=== PATIENT | female | born 1935 | race Caucasian/White ===

== ENCOUNTER 2017-01-04 03:24 | Inpatient (IN) | payer OTHER ==
[2017-01-04] MEDS ORDERED: HYDROCODONE/APAP 5/325 TAB PO ONE (03:34)
[2017-01-04 04:11] LABS: % IMMATURE GRANULYOCYTES 0.3 % (0.0-1.1); ABSOLUTE IMMATURE GRANULOCYTES 0.04 10^3/uL (0.00-0.10); ADD DIFF? NO; ADD MORPH? NO; ADD SCAN? NO; ATYPICAL LYMPHOCYTE FLAG 0 (0-99); FRAGMENT RBC FLAG 0 (0-99); HEMATOCRIT 37.6 % (38.0-47.0); HEMOGLOBIN 12.6 g/dL (12.6-16.3); LEFT SHIFT FLG 0 (0-99); LIPEMIA HEMOLYSIS FLAG 80 (0-99); MEAN CELL HEMOGLOBIN 31.1 pg (27.9-34.1); MEAN CELL HEMOGLOBIN CONCENTR. 33.5 g/dL (32.4-36.7); MEAN CELL VOLUME 92.8 fL (81.5-99.8); MEAN PLATELET VOLUME 8.7 fL (8.7-11.7); PLATELET CLUMPS FLAG 0 (0-99); PLATELET COUNT 306 10^3/uL (150-400); RED BLOOD CELL COUNT 4.05 10^6/uL (4.18-5.33); RED CELL DISTRIBUTION WIDTH 13.5 % (11.5-15.2)
[2017-01-04 04:23] LABS: INR 1.01 (0.83-1.16); PROTIME(PATIENT) 13.2 SEC (12.0-15.0)
[2017-01-04 04:24] LABS: APTT 24.9 SEC (23.0-38.0)
[2017-01-04 04:29] LABS: ALANINE AMINOTRANSFERASE 58 IU/L (9-52); ALBUMIN 4.2 g/dL (3.5-5.0); ALKALINE PHOSPHATASE 85 IU/L (38-126); ANION GAP 9 mEq/L (8-16); ASPARTATE AMINOTRANSFERASE 58 IU/L (14-46); BILIRUBIN,TOTAL 0.5 mg/dL (0.1-1.4); CALCIUM 9.5 mg/dL (8.5-10.4); CARBON DIOXIDE 24 mEq/l (22-31); CHLORIDE 108 mEq/L (97-110); CREATININE 0.8 mg/dL (0.6-1.0); GLOMERULAR FILTRATION RATE > 60; GLUCOSE 115 mg/dL (70-100); POTASSIUM 4.1 mEq/L (3.5-5.2); SODIUM 141 mEq/L (134-144); TOTAL PROTEIN 7.1 g/dL (6.3-8.2)
--- NOTE | 2017-01-04 04:54 | EDPHY ---
H & P Stated Complaint: fall, R upper leg pain, swelling Time Seen by Provider: 01/04/17 03:32 HPI/ROS: HPI The patient presents with a fall which occurred about 2 hours prior to arrival. She is brought in by EMS. She was getting out of bed and she tripped on a magazine on the floor, falling backwards and landing on her right side. She has had right hip pain ever since. The pain is achy, severe, radiates down her leg. She denies any numbness or tingling. She was unable to get up and was yelling for help for several hours until someone came in. She did not lose consciousness, she did not hit her head. REVIEW OF SYSTEMS Constitutional: No fever, no chills. Eyes: No discharge. ENT: No sore throat. Cardiovascular: No chest pain, no palpitations. Respiratory: No cough, no shortness of breath. Gastrointestinal: No abdominal pain, no vomiting. Genitourinary: No hematuria. Musculoskeletal: No back pain. Skin: No rashes. Neurological: No headache. PMHx: Hypertension, bipolar disorder Soc Hx: Lives in [place] usually, however recently returned to her condo in [place], lives independently PHYSICAL General Appearance: Alert, no distress Eyes: Pupils equal and round no pallor or injection ENT, Mouth: Mucous membranes moist Respiratory: There are no retractions, lungs are clear to auscultation Cardiovascular: Regular rate and rhythm Gastrointestinal: Abdomen is soft and non-tender, no masses, bowel sounds normal Neurological: A&O, moves all extremities Skin: Warm and dry, no rashes Musculoskeletal: Neck is supple non tender Extremities: Right leg is held in flexion at the hip and knee with some internal rotation, she has 2+ DP pulses, she has limited range of motion of the hip secondary to pain. 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 surgery- appy, toniselectomy , ortho, CMT, depression, HEART MURMUR,head injuries - Social History Smoking Status: Light smoker Constitutional: Initial Vital Signs Temperature (C) 36.7 C 01/04/17 03:34 Heart Rate 84 01/04/17 03:34 Respiratory Rate 18 01/04/17 03:34 Blood Pressure 203/107 H 01/04/17 03:34 O2 Sat (%) 96 01/04/17 03:34 O2 Delivery Mode Room Air Allergies/Adverse Reactions: Penicillins Allergy (Intermediate, Verified 01/04/17 03:34) Rash STEROIDS Allergy (Uncoded 01/04/17 03:34) Home Medications: Medication Instructions Recorded Herbals/Supplements -Info Only 1 ea PO DAILY 08/28/14 Lisinopril [Zestril 40 mg (*)] 40 mg PO BID #3 tab 08/29/14 lamoTRIgine [LamICTAL 100 MG (*)] 100 mg PO HS #2 tab 08/29/14 Venlafaxine Xr [Effexor Xr] 150 mg PO DAILY 12/23/14 traZODone [traZODONE 100MG (*)] 300 mg PO HS 12/23/14 Labetalol HCl [Trandate 100 mg (*)] 100 mg PO BID #0 tab 12/29/14 Sennosides/Docusate Sodium 1 - 2 tab PO BID #0 tab 12/29/14 [Senokot-S] amLODIPine BESYLATE [Norvasc 10 mg 5 mg PO DAILY #0 tab 12/29/14 (*)] buPROPion XL [Wellbutrin 150mg XL] 300 mg PO DAILY #0 tab 12/29/14 Medical Decision Making - Diagnostics Imaging: Right hip plain film single view shows displaced and angulated midshaft right femur fracture, interpreted by me, radiology interpretation is pending. Procedures: Procedure: Right-sided femoral nerve block under ultrasound guidance was performed by me. Patient provided verbal consent for the procedure. Under sterile conditions, a 22 gauge spinal needle was introduced just distal to the inguinal canal, 20 mL of bupivacaine 0.5% was injected 1 cm lateral to the femoral artery surrounding the femoral nerve. The patient tolerated the procedure well, there were no immediate complications. ED Course/Re-evaluation: The patient was given morphine for her pain with good result. X-rays were performed and revealed a mid shaft femur fracture which is angulated. She has prior total hip and knee replacements on the same leg by Dr. Garcia. I consulted with the orthopedist [employer] Dr. Tucker who has reviewed the patient' s x-rays. We plan for operation later today. I have discussed this with the patient and her son-in-law at the bedside. The patient is still having severe pain, thus I have offered her a femoral nerve block and I performed this in the emergency room with good improvement in her symptoms. Her son-in-law did state that she has been manic lately and the family was planning on getting a psychiatric evaluation in the next few days. The patient will be admitted to the hospitalist service, I have discussed the case with Dr. Alford. Differential Diagnosis: This is an 81-year-old female who lives independently and walks without much difficulty who presents with a fall which occurred just prior to arrival, landing on her right hip. On exam, she is quite hypertensive, she she is complaining of right hip pain. She is neurovascularly intact in the right lower extremity. Differential diagnosis includes hip fracture, femur fracture, hip dislocation. - Data Points Laboratory Results: Laboratory Results 01/04/17 03:55 01/04/17 03:55 01/04/17 01/04/17 01/04/17 03:55 03:55 03:55 WBC RBC Hgb Hct MCV MCH MCHC RDW Plt Count MPV Neut % (Auto) Lymph % (Auto) Grainger % (Auto) Eos % (Auto) Baso % (Auto) Nucleat RBC Rel Count Absolute Neuts (auto) Absolute Lymphs (auto) Absolute Monos (auto) Absolute Eos (auto) Absolute Basos (auto) Absolute Nucleated RBC Immature Gran % Immature Gran # PT 13.2 SEC SEC (12.0-15.0) INR 1.01 (0.83-1.16) APTT 24.9 SEC SEC (23.0-38.0) Sodium 141 mEq/L mEq/L (134-144) Potassium 4.1 mEq/L mEq/L (3.5-5.2) Chloride 108 mEq/L mEq/L (97-110) Carbon Dioxide 24 mEq/l mEq/l (22-31) Anion Gap 9 mEq/L mEq/L (8-16) BUN 29 mg/dL H mg/dL (7-23) Creatinine 0.8 mg/dL mg/dL (0.6-1.0) Estimated GFR > 60 Glucose 115 mg/dL H mg/dL (70-100) Calcium 9.5 mg/dL mg/dL (8.5-10.4) Total Bilirubin 0.5 mg/dL mg/dL (0.1-1.4) AST 58 IU/L H IU/L (14-46) ALT 58 IU/L H IU/L (9-52) Alkaline Phosphatase 85 IU/L IU/L (38-126) Troponin I < 0.012 ng/mL ng/mL (0-0.034) Total Protein 7.1 g/dL g/dL (6.3-8.2) Albumin 4.2 g/dL g/dL (3.5-5.0) 01/04/17 03:55 WBC 12.08 10^3/uL H 10^3/uL (3.80-9.50) RBC 4.05 10^6/uL L 10^6/uL (4.18-5.33) Hgb 12.6 g/dL g/dL (12.6-16.3) Hct 37.6 % L % (38.0-47.0) MCV 92.8 fL fL (81.5-99.8) MCH 31.1 pg pg (27.9-34.1) MCHC 33.5 g/dL g/dL (32.4-36.7) RDW 13.5 % % (11.5-15.2) Plt Count 306 10^3/uL 10^3/uL (150-400) MPV 8.7 fL fL (8.7-11.7) Neut % (Auto) 85.2 % H % (39.3-74.2) Lymph % (Auto) 6.8 % L % (15.0-45.0) Grainger % (Auto) 6.3 % % (4.5-13.0) Eos % (Auto) 1.2 % % (0.6-7.6) Baso % (Auto) 0.2 % L % (0.3-1.7) Nucleat RBC Rel Count 0.0 % % (0.0-0.2) Absolute Neuts (auto) 10.29 10^3/uL H 10^3/uL (1.70-6.50) Absolute Lymphs (auto) 0.82 10^3/uL L 10^3/uL (1.00-3.00) Absolute Monos (auto) 0.76 10^3/uL 10^3/uL (0.30-0.80) Absolute Eos (auto) 0.15 10^3/uL 10^3/uL (0.03-0.40) Absolute Basos (auto) 0.02 10^3/uL 10^3/uL (0.02-0.10) Absolute Nucleated RBC 0.00 10^3/uL 10^3/uL (0-0.01) Immature Gran % 0.3 % % (0.0-1.1) Immature Gran # 0.04 10^3/uL 10^3/uL (0.00-0.10) PT INR APTT Sodium Potassium Chloride Carbon Dioxide Anion Gap BUN Creatinine Estimated GFR Glucose Calcium Total Bilirubin AST ALT Alkaline Phosphatase Troponin I Total Protein Albumin Medications Given: Discontinued Medications Hydrocodone Bitart/Acetaminophen ([place] 5/325) 2 tab PO EDNOW ONE Stop: 01/04/17 03:35 Last Admin: 01/04/17 06:20 Dose: Not Given Morphine Sulfate (Morphine) 4 mg IVP EDNOW ONE Stop: 01/04/17 03:51 Last Admin: 01/04/17 04:02 Dose: 4 mg Departure - Departure Disposition: [facility] Inpatient Acute Clinical Impression: Recurrent falls, Benign essential hypertension Right femoral shaft fracture Qualifiers: Encounter type: initial encounter Fracture type: closed Fracture morphology: oblique Fracture alignment: displaced Qualified Code(s): S72.331A - Displaced oblique fracture of shaft of right femur, initial encounter for closed fracture
--- NOTE | 2017-01-04 06:19 | CPEKG ---
Heart Rate: 91 RR Interval: 659 P-R Interval: 172 QRSD Interval: 88 QT Interval: 396 QTC Interval: 488 P [place]: 74 QRS [place]: 44 T Wave [place]: 71 EKG Severity - ABNORMAL ECG - EKG Impression: SINUS RHYTHM EKG Impression: PROBABLE LEFT ATRIAL ABNORMALITY EKG Impression: PROBABLE LEFT VENTRICULAR HYPERTROPHY EKG Impression: BORDERLINE PROLONGED QT INTERVAL Electronically Signed By: Delmis Shelby 04-Jan-2017 08:01:56
[2017-01-04] MEDS ORDERED: ONDANSETRON 4 MG/2 ML VIAL IVP PRN (06:40)
[2017-01-04] MEDS ORDERED: ONDANSETRON DISINTEGRATING 4 MG TAB PO PRN (06:40)
[2017-01-04] MEDS ORDERED: ACETAMINOPHEN 325 MG TAB PO PRN (06:40)
[2017-01-04] MEDS ORDERED: NS 1,000 ML IV SCH (06:45)
--- NOTE | 2017-01-04 07:35 | PDGENHP ---
History and Physical - Chief Complaint fall - History of Present Illness Patient is an 81-year-old female with history of hypertension, bipolar disorder, Motiikn-Nrrlt-Bhxin disease, hyperlipidemia chronic arthritis who presents to the ED after a mechanical fall at home. Patient reports she had woken from sleeping to get a drink of water, she was 1 walking cross her floor she slipped on a magazine and landed on her right side/hip. She immediately felt intense pain in her right hip and reports hearing a snap. She was unable to rise from the floor, but was able to call out and bang on her floor, so that eventually her neighbors called EMS. Patient denies any obvious head trauma, LOC or preceding symptoms of palpitations, chest pain or shortness of breath. Patient does report that she had shefali food for lunch on the day of presentation and reports about 3-4 hours after lunch began having loose, foul-smelling stools and nausea/vomiting. She reports vomiting 1-2 times and having about 2-3 BMs, both nonbloody. On arrival to the ED, patient was significantly hypertensive, but afebrile. Labs revealed mild leukocytosis, normal BMP, negative troponin. X-ray revealed displaced R femoral shaft fracture. She was given pain control, Ortho was consulted and she was admitted to the hospitalist service for further management. Of note, patient was in the ED with her son-in-law, who states for the past several weeks patient has been acting in a manic manner. She left her daughter' s home in [place] where she was living and moved into her unfurnished [facility] apartment alone in [place]. He is unable to say if she has been drinking alcohol or taking all her prescribed medications. The psychiatrist she had been following with for many years several months ago and patient's psych care as diminished since then. Currently, patient denies any SI/HI. History Information - Allergies/Home Medication List Allergies/Adverse Reactions: Penicillins Allergy (Intermediate, Verified 01/04/17 03:34) Rash STEROIDS Allergy (Uncoded 01/04/17 07:57) Other-Enter Comments Home Medications: Venlafaxine Xr [Effexor Xr] 150 mg PO DAILY 12/23/14 [Last Taken 12/23/14 08:00] traZODone [traZODONE 100MG (*)] 300 mg PO HS 12/23/14 [Last Taken 12/22/14 20:00 ] Gabapentin [Neurontin 100 MG (*)] 100 - 300 mg PO TID PRN 01/04/17 [Last Taken 01/03/17] I have personally reviewed and updated: family history, medical history, social history, surgical history - Past Medical History Additional medical history: labile hypertension. HLD. Cmckyqi-qgleu-otcyy disease. arthritis. Bipolar disorder - Surgical History Additional surgical history: b/l hip replacement. knee replacement. appendectomy. knee reconstruction. tubal ligation - Family History Positive for: non-pertinent - Social History Smoking Status: Light smoker Alcohol Use: None Drug Use: None Additional social history: Patient usually lives with her daughter in [facility] , but recently left and now lives alone. Review of Systems ROS: 10pt was reviewed & negative except for what was stated in HPI & below Physical Exam Temp Pulse Resp BP Pulse Ox 36.7 C 81 16 181/90 H 99 01/04/17 03:34 01/04/17 06:00 01/04/17 06:00 01/04/17 06:00 01/04/17 06:00 O2 (L/minute) 2 Constitutional: appears nourished, uncomfortable Eyes: PERRL, anicteric sclera, EOMI Ears, Nose, Mouth, Throat: hearing normal, ears appear normal, no oral mucosal ulcers, dry mucous membranes Cardiovascular: regular rate and rhythym, no murmur, rub, or gallop, pulses symmetric bilaterally, No JVD, No edema Peripheral Pulses: 2+: dorsalis-pedis (R), dorsalis-pedis (L) Respiratory: no respiratory distress, no rales or rhonchi, clear to auscultation Gastrointestinal: normoactive bowel sounds, soft, non-tender abdomen, no palpable masses, No guarding, No rebound, No distension Genitourinary: no bladder fullness, no bladder tenderness Skin: other (no obvious ecchymosis or abrasions) Musculoskeletal: pain with ROM ( of RLE) Neurologic: AAOx3, sensation intact bilaterally, CN II-XII Intact, other, No weakness, No numbness Psychiatric: other (pressured speech, perseverating ) Lab Data & Imaging Review 01/04/17 03:55 01/04/17 03:55 WBC 12.08 10^3/uL (3.80-9.50) H 01/04/17 03:55 RBC 4.05 10^6/uL (4.18-5.33) L 01/04/17 03:55 Hgb 12.6 g/dL (12.6-16.3) 01/04/17 03:55 Hct 37.6 % (38.0-47.0) L 01/04/17 03:55 MCV 92.8 fL (81.5-99.8) 01/04/17 03:55 MCH 31.1 pg (27.9-34.1) 01/04/17 03:55 MCHC 33.5 g/dL (32.4-36.7) 01/04/17 03:55 RDW 13.5 % (11.5-15.2) 01/04/17 03:55 Plt Count 306 10^3/uL (150-400) 01/04/17 03:55 MPV 8.7 fL (8.7-11.7) 01/04/17 03:55 Neut % (Auto) 85.2 % (39.3-74.2) H 01/04/17 03:55 Lymph % (Auto) 6.8 % (15.0-45.0) L 01/04/17 03:55 [place] % (Auto) 6.3 % (4.5-13.0) 01/04/17 03:55 Eos % (Auto) 1.2 % (0.6-7.6) 01/04/17 03:55 Baso % (Auto) 0.2 % (0.3-1.7) L 01/04/17 03:55 Nucleat RBC Rel Count 0.0 % (0.0-0.2) 01/04/17 03:55 Absolute Neuts (auto) 10.29 10^3/uL (1.70-6.50) H 01/04/17 03:55 Absolute Lymphs (auto) 0.82 10^3/uL (1.00-3.00) L 01/04/17 03:55 Absolute Monos (auto) 0.76 10^3/uL (0.30-0.80) 01/04/17 03:55 Absolute Eos (auto) 0.15 10^3/uL (0.03-0.40) 01/04/17 03:55 Absolute Basos (auto) 0.02 10^3/uL (0.02-0.10) 01/04/17 03:55 Absolute Nucleated RBC 0.00 10^3/uL (0-0.01) 01/04/17 03:55 Immature Gran % 0.3 % (0.0-1.1) 01/04/17 03:55 Immature Gran # 0.04 10^3/uL (0.00-0.10) 01/04/17 03:55 PT 13.2 SEC (12.0-15.0) 01/04/17 03:55 INR 1.01 (0.83-1.16) 01/04/17 03:55 APTT 24.9 SEC (23.0-38.0) 01/04/17 03:55 Sodium 141 mEq/L (134-144) 01/04/17 03:55 Potassium 4.1 mEq/L (3.5-5.2) 01/04/17 03:55 Chloride 108 mEq/L (97-110) 01/04/17 03:55 Carbon Dioxide 24 mEq/l (22-31) 01/04/17 03:55 Anion Gap 9 mEq/L (8-16) 01/04/17 03:55 BUN 29 mg/dL (7-23) H 01/04/17 03:55 Creatinine 0.8 mg/dL (0.6-1.0) 01/04/17 03:55 Estimated GFR > 60 01/04/17 03:55 Glucose 115 mg/dL (70-100) H 01/04/17 03:55 Calcium 9.5 mg/dL (8.5-10.4) 01/04/17 03:55 Total Bilirubin 0.5 mg/dL (0.1-1.4) 01/04/17 03:55 AST 58 IU/L (14-46) H 01/04/17 03:55 ALT 58 IU/L (9-52) H 01/04/17 03:55 Alkaline Phosphatase 85 IU/L (38-126) 01/04/17 03:55 Troponin I < 0.012 ng/mL (0-0.034) 01/04/17 03:55 Total Protein 7.1 g/dL (6.3-8.2) 01/04/17 03:55 Albumin 4.2 g/dL (3.5-5.0) 01/04/17 03:55 Visualized and Interpreted imaging results: Yes Interpretation: x-ray: displaced R femoral shaft fracture Visualized and Interpreted EKG results: Yes EKG Interpretation: Positive for: LVH, normal sinsus rhythm Assessment & Plan Assessment: Patient is 81/F with bipolar disorder, HTN, HLD, charcot zaire tooth disease who presents to the ED after a mechanical fall that resulted in R femoral shaft displaced fracture. Plan: # fall Patient's description of fall sounds mechanical in nature (slipped on magazine) . She denies head trauma or cardiac symptoms, EKG showed normal sinus rhythm and troponin is negative. # acute R femoral shaft fracture Due to above listed fall. Ortho consulted, official recs pending, but patient will require surgical fixation. Currently neurovascularly intact. Will f/u ortho recs. # leukocytosis Patient afebrile, with mild leukocytosis on presentation, which is likely reactive. However, patient does report recent n/v/d after a meal on the day prior to presentation. No repeat episodes since arrival. Will check UA, CXR and hold off on antibiotics until obvious source has been identified. # chronic HTN BP markedly elevated on presentation, but likely related to acute pain/ fracture. Will confirm home meds, control pain and reassess. # Bipolar disorder Patient appears manic on presentation, with pressured speech, flight of ideas. However, is re-directable, and denies any si/hi. Will consider psych consult and cont home medications. # dispo: admit to inpatient service for > 2 MN stay give acute fracture requiring surgical repair # gen: NPO DVT ppx: lovenox, per orth Full code
[2017-01-04] MEDS ORDERED: LIDOCAINE 2% JELLY 5 ML TUBE ONE (07:46)
[2017-01-04] MEDS ORDERED: POLYMYXIN B SULFATE 500,000 UNIT/10 ML SYR IRR ONE (09:21)
[2017-01-04] MEDS ORDERED: BUPIVACAINE 0.5% 30 ML SDV ONE (09:21)
[2017-01-04] MEDS ORDERED: BACITRACIN 50,000 UNITS/10 ML SYR IRR ONE (09:23)
[2017-01-04] MEDS ORDERED: GABAPENTIN 100 MG CAP PO PRN (09:30)
[2017-01-04] MEDS ORDERED: lamoTRIgine 25 MG TAB PO ONE (09:32)
--- NOTE | 2017-01-04 10:42 | ECHO ---
[id number] + + [address] : : [place] [address] : : [phone] + Adult Echocardiographic Report + ------+ :Name: GREG ALLEN HStudy Date: 01/04/2017 09:36 AM : : Hospital Admission Number: [id number] Locatio n: 243: :: 1935 Gender: Female Height: 63 in : :Age: 81 yrs Race: WH Weight: 120 lb : :Reason For Study: Hypertension/fall/R/O cardiac abnormality : : BSA: 1.6 meters 2 : + ------+ MMode/2D Measurements \T\ Calculations LA dimension: 3.3 cm Normal Measurement Values: + + :LVIDd (3.5-5.7cm) IVSd (0.6-1.1cm) LVPWd (0.6-1.1cm) Aortic Root (2.0-3.7cm)Left Atrium (1.5-4.0cm): :LV Vol(d) (76-115ml) LV Vol(s) (29-48ml) Ejec Fraction (50-65%)PV Jabier (0.6- 1.2m/s) TV Jabier (0.4-1.0m/s) : :MV E Jabeir (0.8-1.0m/s)MV A Jabier (0.3-1.0m/s)LVOT Jabier (0.7-1.2m/s) Asc Ao Jabier ( 0.9-1.8m/s) : + + Doppler Measurements \T\ Calculations MV E max jabier: 70.6 cm/sec Ao mean P.5 mmHg MV A max jabier: 138.7 cm/sec Ao V2 mean: 112.5 cm/sec MV E/A: 0.51 Ao V2 VTI: 33.3 cm Left Ventricle The left ventricle is normal in size. There is moderate concentric left ventricular hypertrophy. There is Doppler evidence for diastolic dysfunction. The left ventricle is hyperdynamic. Ejection Fraction = 70-75%. Elevated LV filling pressures. No regional wall motion abnormalities noted. Right Ventricle The right ventricle is normal in size and function. Atria The left atrial size is normal. Right atrial size is normal. Mitral Valve Calcified posterior mitral annulus. There is no evidence of mitral valve prolapse. There is mild mitral stenosis. There is trace mitral regurgitation. Tricuspid Valve Normal tricuspid valve. There is trace tricuspid regurgitation. Aortic Valve AV mild calcification. Not well visualized. There is no aortic stenosis. There is no aortic insufficiency. Pulmonic Valve The pulmonic valve is not well visualized. There is no pulmonic valvular regurgitation. Great Vessels The aortic root is normal size. Pericardium/Pleural There is no pericardial effusion. Conclusion A complete two-dimensional transthoracic echocardiogram was performed (2D, M-mode, Doppler and color flow Doppler). There is moderate concentric left ventricular hypertrophy. The left ventricle is hyperdynamic. There is Doppler evidence for diastolic dysfunction. Ejection Fraction = 70-75%. There is trace mitral regurgitation. There is trace tricuspid regurgitation. Calcified posterior mitral annulus There is mild mitral stenosis. AV mild calcification. Aortic valve is not well visualized. There is no Compared with 12/28/2011, LVH now present; mild MS now present Final Reading Physician: Dr Awilda Somers electronically signed on 01/04/2017 10:40 AM Ordering Physician: Negin Alford Performed By: Maribel Kaplan, KAYLA
[2017-01-04] MEDS: LABETALOL HCL 100 MG TAB PO SCH ×2 (11:23→20:29)
[2017-01-04] MEDS ORDERED: MIDAZOLAM 2 MG/2 ML VIAL ONE (13:03)
[2017-01-04] MEDS ORDERED: fentaNYL 100 MCG/2 ML INJ ONE ×2 (13:24→15:11)
[2017-01-04] MEDS ORDERED: PROPOFOL 200 MG/20 ML VIAL ONE ×3 (13:24→15:43)
[2017-01-04] MEDS ORDERED: CLINDAMYCIN 600 MG/DEXTROSE/50 ML BAG IV ONE (13:28)
[2017-01-04] MEDS ORDERED: CLINDAMYCIN 600 MG in D5W 50 ML IV ONE (13:30)
[2017-01-04] MEDS ORDERED: PHENYLEPHRINE HCL 100 MCG/ML SYR ONE (14:21)
[2017-01-04] MEDS ORDERED: PHENYLEPHRINE 10 MG/ML SDV ONE (14:34)
[2017-01-04] MEDS ORDERED: ALBUMIN 5% 250 ML BOTTLE IV ONE (14:39)
[2017-01-04] MEDS ORDERED: TEMAZEPAM 15 MG CAP PO PRN (16:30)
[2017-01-04] MEDS ORDERED: MAGNESIUM HYDROXIDE 30 ML UDCUP PO PRN (16:30)
[2017-01-04] MEDS ORDERED: POLYETHYLENE GLYCOL 3350 17 GM PKT PO PRN (16:30)
[2017-01-04] MEDS ORDERED: D5W 1/2 NS W/ 20 KCl/L 1,000 ML IV SCH (16:30)
[2017-01-04] MEDS ORDERED: BISACODYL 10 MG SUPP PR PRN (16:30)
--- NOTE | 2017-01-04 16:30 | POSTOPPROG ---
Post Op Note Date of Operation: 01/04/17 Surgeon: Kalani Tucker Anesthesiologist: emmett Anesthesia: Epidural Pre-op Diagnosis: r periprosthetic femur fx Procedure: r femur orif with fluoro Inf/Abcess present in the surg proc area at time of surgery?: No Depth: Deep Incisional (Fascial) EBL: 500-1000
[2017-01-04] MEDS ORDERED: ENALAPRILAT DIHYDRATE 1.25 MG/ML VIAL ONE (17:16)
[2017-01-04] MEDS: ACETAMINOPHEN 325 MG TAB PO SCH ×2 (18:23→23:32)
[2017-01-04] MEDS: traMADol 50 MG TAB PO SCH ×2 (18:24→23:29)
--- NOTE | 2017-01-04 18:35 | HOSPPROG ---
Hospitalist Progress Note Assessment/Plan: pt seen and examined Hip fracture to be repaired today. pt is manic and probably hasn't taken her meds in a while Will get psych consult. restart lamictal at lower dose and titrate up. hold antidepressants for now Objective: Vital Signs Temp Pulse Resp BP Pulse Ox 36.8 C 82 16 150/73 H 93 01/04/17 18:31 01/04/17 18:31 01/04/17 18:31 01/04/17 18:31 01/04/17 18:31 01/03/17 01/04/17 01/05/17 05:59 05:59 05:59 Intake Total 1250 Output Total 1600 Balance -350 PT 13.2 SEC (12.0-15.0) 01/04/17 03:55 INR 1.01 (0.83-1.16) 01/04/17 03:55 ICD10 Worksheet Patient Problems: Problems Problem Status Onset Benign essential hypertension Acute Recurrent falls Acute Right femoral shaft fracture Acute Hyponatremia Active Vasovagal syncope Active
[2017-01-04] MEDS ORDERED: diphenhydrAMINE 25 MG CAP PO PRN (19:11)
[2017-01-04] MEDS: lamoTRIgine 100 MG TAB PO SCH (20:24)
[2017-01-04] MEDS: traZODone 100 MG TAB PO SCH (20:24)
[2017-01-04] MEDS: SENNOSIDES/DOCUSATE SODIUM TAB PO SCH (20:24)
[2017-01-04] MEDS ORDERED: lamoTRIgine 100 MG TAB PO SCH (21:00)
--- NOTE | 2017-01-04 21:34 | GCON ---
DATE OF CONSULTATION: 01/04/2017 CURRENT COMPLAINT: Right femur pain. HISTORY OF PRESENT ILLNESS: This is an 81-year-old female who had previously undergone a right tota l hip arthroplasty and a right total knee arthroplasty, who fell this evening. Had pain and deformi ty. Was seen in the emergency room, diagnosed with a long oblique displaced fracture of the midshaf t of the femur. I was asked to see the patient for further evaluation. PHYSICAL EXAMINATION: The patient has an obvious deformity of the femur with a great deal of swelli ng noted. With any type of movement, she has crepitus and pain associated with movement of the leg. She remains grossly neurologically intact to the dorsal, lateral, and plantar portions of the foot with EHL and FHL remaining intact. RADIOLOGY: X-ray exam reveals a long spiral fracture of midshaft of the femur, extending well into and involving the right total hip arthroplasty. ASSESSMENT AND PLAN: The patient is status post right periprosthetic femur fracture. She will be b rought to the operating room as soon as time is available for an open reduction and internal fixatio n. /[id number]/MODL
[2017-01-04] MEDS: CLINDAMYCIN 600 MG/DEXTROSE 50 ML IV SCH (21:39)
--- NOTE | 2017-01-04 22:04 | GOP ---
DATE OF OPERATION: 01/04/2017 SURGEON: Kalani Tucker MD ANESTHESIA: Epidural nerve block plus sedation. PREOPERATIVE DIAGNOSIS: Right periprosthetic femur fracture. POSTOPERATIVE DIAGNOSIS: Right periprosthetic femur fracture. PROCEDURE PERFORMED: Open reduction, internal fixation of right periprosthetic femur fracture with fluoroscopy. FINDINGS: INDICATIONS: This is an 81-year-old female who has a remote history of bilateral hip replacements a nd a right knee replacement. She slipped and fell last night, was seen in the emergency room, diagn osed with a displaced femur fracture involving the total hip arthroplasty. She was brought to the o perating room as soon as time was available. DESCRIPTION OF PROCEDURE: Patient brought to the operating room after the right side had been ident ified as the correct side by the patient, nurse, and physician. Once in the operating room, she was given an epidural nerve block. She was then placed in the lateral decubitus position with the righ t hip and flank exposed. The right hip and flank were then sterilely prepped and draped in usual fa shion using GSI solution. Once prepped and draped, incision was started using the distal 2 inches o f her hip arthroplasty scar and extending all the way to the lateral femoral condyle in a curvilinea r fashion with sharp dissection carried down through skin and subcutaneous layers with bleeding cont rolled using electrocautery. Incision was made through the TFL in line with its fibers, exposing th e vastus lateralis below. The vastus lateralis was then peeled off the bone in order to expose the fracture site. Much of the periosteal dissection had been done by the fracture itself. The tip of the hip arthroplasty was easily visible within the wound. Hematoma and soft tissue were debrided of f the fracture ends. Once completed, the wound was thoroughly irrigated with an antibiotic solution . The fracture was able to be reduced, was held in place with 2 reduction bone clamps. Once in pos ition, fluoroscopy was used to ensure adequate reduction of the femur itself. Once this was shown, multiple plates were trialed and noted a 16-hole 4.5 mm plate seemed to fit best with regard to exte nding above and below the long oblique fracture. Therefore 2 interfragmentary screws were placed in the midportion of the fracture well below the hip arthroplasty. Once in position, clamps were jyoti morenita. A 16 hole plate was then placed on the area. It was noted to have a significant concavity. T herefore, the plate had to be bent in order to fit the concavity. Once this was bent and put into p lace, it was noted to fit securely onto the bone. A single bicortical screw was placed in the dista l portion of the plate and a single cable was passed around the proximal portion around the plate ne ar the area of the hip arthroplasty. Fluoroscopy was again used to ensure adequate reduction of the fracture and good positioning of the plate. Once this was ensured, 3 locking screws were placed in the distal portion of the plate and 3 more cables were placed in the proximal portion of the plate in order to gain both proximal and distal fixation across the fracture site with the area bridged by a large metal plate and the 2 interfragmentary screws in the middle. Fluoroscopy was used to ensur e proper positioning of the screws and the cables. Once ensured, the wound was thoroughly irrigated with an antibiotic solution. It was closed in layers to include 0 Vicryl suture for the fascia of the vastus lateralis, and another set of 0 Vicryl sutures for the tensor fascia natanael, 0 Vicryl and 2 -0 Vicryl suture for the subcutaneous layers, and vipul for the skin. 30 cc of Marcaine was infus ed around the skin and deeper soft tissue layers. The wound was then washed and dried. It was dres sed with Xeroform, 4 x 4, and Tegaderm. She was completely undraped in the operating room, placed i n supine position. She was then transferred onto a bed and sent to the recovery room in good condit ion. CURRENT COMPLAINTS: Right femur pain. /[id number]/MODL
[2017-01-04] MEDS ORDERED: hydrALAZINE 20 MG/ML VIAL IVP PRN (23:43)
[2017-01-04 23:54] LABS: COLOR YELLOW; LEUKOCYTE ESTERASE,URINE NEGATIVE (NEGATIVE); NITRITE,URINE NEGATIVE (NEGATIVE)
[2017-01-05 00:11] LABS: MUCUS TRACE /lpf (NONE-1+); RBC,URINE 25-50 /hpf (0-3)
[2017-01-05 06:20] LABS: HEMOGLOBIN 10.8 g/dL (12.6-16.3)
[2017-01-05] MEDS: traMADol 50 MG TAB PO SCH ×3 (06:31→18:20)
[2017-01-05] MEDS: CLINDAMYCIN 600 MG/DEXTROSE 50 ML IV SCH ×3 (06:31→20:56)
[2017-01-05] MEDS: ACETAMINOPHEN 325 MG TAB PO SCH ×4 (06:34→20:47)
[2017-01-05] MEDS: RIVAROXABAN 10 MG TAB PO SCH (09:19)
[2017-01-05] MEDS: SENNOSIDES/DOCUSATE SODIUM TAB PO SCH ×2 (09:20→20:46)
[2017-01-05] MEDS: HYDROCODONE/APAP 5/325 TAB PO PRN ×4 (09:21→18:21)
[2017-01-05] MEDS: LABETALOL HCL 100 MG TAB PO SCH ×2 (09:21→20:51)
[2017-01-05] MEDS ORDERED: FLU VACC TS 2016-17(65YR+)/PF 0.5 ML SYR (FLUZONE HIGH DOSE) IM ONE (10:30)
--- NOTE | 2017-01-05 11:24 | SOAPPROG ---
SOAP Progress Note Assessment/Plan: Assessment: Plan: Subjective: comfortable and talkative dressings C&D with foot NVI cont PT Objective: Vital Signs Temp Pulse Resp BP Pulse Ox 36.5 C 81 19 163/78 H 98 01/05/17 07:56 01/05/17 09:21 01/05/17 07:56 01/05/17 09:21 01/05/17 07:56 Laboratory Results 01/05/17 05:03 01/04/17 01/05/17 01/06/17 05:59 05:59 05:59 Intake Total 2250 500 Output Total 2350 Balance -100 500 PT 13.2 SEC (12.0-15.0) 01/04/17 03:55 INR 1.01 (0.83-1.16) 01/04/17 03:55 ICD10 Worksheet Patient Problems: Problems Problem Status Onset Benign essential hypertension Acute Recurrent falls Acute Right femoral shaft fracture Acute Hyponatremia Active Vasovagal syncope Active
--- NOTE | 2017-01-05 12:30 | HOSPPROG ---
Hospitalist Progress Note Assessment/Plan: * hip fracture * status post repair * bipolar with manic episode * better today with Lamictal * psych input appreciated * hypertension * continue medications * DVT prophylaxis * placed on Xarelto by Orthopedic surgery Subjective: doing well postoperatively. Objective: Vital Signs Temp Pulse Resp BP Pulse Ox 36.6 C 68 18 122/63 H 95 01/05/17 12:22 01/05/17 12:22 01/05/17 12:22 01/05/17 12:22 01/05/17 12:22 Laboratory Results 01/05/17 05:03 01/04/17 01/05/17 01/06/17 05:59 05:59 05:59 Intake Total 2250 500 Output Total 2350 Balance -100 500 PT 13.2 SEC (12.0-15.0) 01/04/17 03:55 INR 1.01 (0.83-1.16) 01/04/17 03:55 - Physical Exam Constitutional: no apparent distress, appears nourished, not in pain Eyes: anicteric sclera, EOMI Ears, Nose, Mouth, Throat: moist mucous membranes, hearing normal Cardiovascular: regular rate and rhythym Respiratory: no respiratory distress Skin: warm Neurologic: AAOx3 Psychiatric: other ( Less pressured speech but still quite talkative) ICD10 Worksheet Patient Problems: Problems Problem Status Onset Benign essential hypertension Acute Recurrent falls Acute Right femoral shaft fracture Acute Hyponatremia Active Vasovagal syncope Active
[2017-01-05] MEDS: traZODone 100 MG TAB PO SCH (20:45)
[2017-01-05] MEDS: lamoTRIgine 100 MG TAB PO SCH (20:48)
[2017-01-05] MEDS: oxyCODONE IR 5 MG TAB PO PRN (21:35)
--- NOTE | 2017-01-06 00:05 | SOAPPROG ---
SOAP Progress Note Assessment/Plan: Psychiatry brief consult (patient not interviewed as she was in surgery 01/04/17): 81yo F with long hx of BMD per hx has been more manic and inconsistently compliant with meds and treatment over past few months since psychiatrist . Admitted to hosp s/p spiral fx of femur after slipped on magazine and fell when getting up at night Primary team requested consult for BMD medication recommendations. Has several psychiatric home meds (Effexor, Trazodone, Wellbutrin, Lamictal, Gabapentin) Attempted to see patient on 01/04/17 at 13:30 but she was in surgery. Unable to see today. Discussed case with Dr. Ma, and briefly reviewed history, meds. Also t/w pharmacy about pt hx of med refills- pt last filled Trazodone and Gabapentin 12/06/16, Lamictal in 10/2016, and Wellbutrin and Effexor in early Nov 2016. 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 Could incr at faster rate in inpatient setting and monitor more closely, but ok to stay at 25mg qd for now. Restart outpt Trazodone 300mg for now. Tolerated without incident last night. High dose, also technically an antidepressant so could contribute to tash, but seems may have been more compliant with this since most recently filled. Could try lower dose 200mg or even 100mg as may not need more for sleep. Watch for any s/e, incl orthostasis. Hold antidepressant meds Wellbutrin, Effexor for now. Not indicated if BMD manic. In this elderly woman, would also d/c her prn Benadryl and Temazepam to decr risk of adverse effects. Hasn't used any post-op. Will try to get collateral from family, and if pt able to sign for [facility], could get records or consent to t/w outpt psychiatry at [facility] for collateral. Per RN today, pt manic mainly noted with excessive talking but otherwise has been in behavioral control and redirectible. 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 Did not sustain head injury s/p fall prior to this admission. Will try to see this patient as soon as possible for formal consult. Please do not hesitate to call in the meantime if any further questions or concerns, or clinical changes. Objective: Vital Signs Temp Pulse Resp BP Pulse Ox 37.7 C 85 16 125/58 H 93 01/05/17 20:22 01/05/17 20:22 01/05/17 20:22 01/05/17 20:22 01/05/17 20:22 Laboratory Results 01/05/17 05:03 01/04/17 01/05/17 01/06/17 05:59 05:59 05:59 Intake Total 2250 650 Output Total 2350 Balance -100 650 PT 13.2 SEC (12.0-15.0) 01/04/17 03:55 INR 1.01 (0.83-1.16) 01/04/17 03:55 ICD10 Worksheet Patient Problems: Problems Problem Status Onset Benign essential hypertension Acute Recurrent falls Acute Right femoral shaft fracture Acute Hyponatremia Active Vasovagal syncope Active
[2017-01-06] MEDS: traMADol 50 MG TAB PO SCH ×5 (03:27→23:53)
[2017-01-06] MEDS: CLINDAMYCIN 600 MG/DEXTROSE 50 ML IV SCH (05:10)
[2017-01-06] MEDS: ACETAMINOPHEN 325 MG TAB PO SCH ×4 (05:15→23:53)
[2017-01-06 05:27] LABS: HEMATOCRIT 30.1 % (38.0-47.0); HEMOGLOBIN 10.1 g/dL (12.6-16.3)
[2017-01-06] MEDS: oxyCODONE IR 5 MG TAB PO PRN ×2 (08:39→15:17)
[2017-01-06] MEDS: LABETALOL HCL 100 MG TAB PO SCH ×2 (08:40→20:16)
[2017-01-06] MEDS: RIVAROXABAN 10 MG TAB PO SCH (08:40)
[2017-01-06] MEDS: SENNOSIDES/DOCUSATE SODIUM TAB PO SCH ×2 (08:40→20:17)
[2017-01-06] MEDS: LACTULOSE 20 GM/30 ML UDCUP PO PRN (08:42)
[2017-01-06] MEDS ORDERED: MAGNESIUM CITRATE 300 ML BOTTLE PO ONE (15:09)
--- NOTE | 2017-01-06 15:19 | HOSPPROG ---
Hospitalist Progress Note Assessment/Plan: * hip fracture * status post repair * bipolar with manic episode * better today with Lamictal * psych input appreciated * hypertension * continue medications * DVT prophylaxis * placed on Xarelto by Orthopedic surgery * disposition * could probably going to rehab tomorrow but would like psychiatric state to be stable. Family looking at rehab at [place] but patient wants this day in [place]. She apparently has a boyfriend and there is some question if she has been giving him all of her money Subjective: feels constipated Objective: Vital Signs Temp Pulse Resp BP Pulse Ox 37.3 C 77 18 123/74 H 96 01/06/17 12:16 01/06/17 12:16 01/06/17 12:16 01/06/17 12:16 01/06/17 12:16 Laboratory Results 01/06/17 04:45 01/05/17 01/06/17 01/07/17 05:59 05:59 05:59 Intake Total 2250 950 300 Output Total 2350 850 Balance -100 950 -550 PT 13.2 SEC (12.0-15.0) 01/04/17 03:55 INR 1.01 (0.83-1.16) 01/04/17 03:55 - Physical Exam Constitutional: no apparent distress, appears nourished, not in pain Eyes: anicteric sclera, EOMI Ears, Nose, Mouth, Throat: moist mucous membranes, hearing normal Cardiovascular: regular rate and rhythym, no murmur, rub, or gallop Respiratory: no respiratory distress, no rales or rhonchi, clear to auscultation Gastrointestinal: normoactive bowel sounds, soft, non-tender abdomen, no palpable masses Skin: warm Neurologic: AAOx3 Psychiatric: other ( the about the same as yesterday. Less pressured speech but pretty talkative) ICD10 Worksheet Patient Problems: Problems Problem Status Onset Benign essential hypertension Acute Recurrent falls Acute Right femoral shaft fracture Acute Hyponatremia Active Vasovagal syncope Active
[2017-01-06] MEDS: traZODone 100 MG TAB PO SCH (20:16)
[2017-01-06] MEDS: lamoTRIgine 100 MG TAB PO SCH (20:17)
[2017-01-07] MEDS: traMADol 50 MG TAB PO SCH ×4 (05:09→22:52)
[2017-01-07] MEDS: LACTULOSE 20 GM/30 ML UDCUP PO PRN (05:09)
[2017-01-07] MEDS: ACETAMINOPHEN 325 MG TAB PO SCH ×4 (05:09→22:51)
[2017-01-07 05:53] LABS: % IMMATURE GRANULYOCYTES 0.6 % (0.0-1.1); ABSOLUTE IMMATURE GRANULOCYTES 0.04 10^3/uL (0.00-0.10); ADD DIFF? NO; ADD MORPH? NO; ADD SCAN? NO; ATYPICAL LYMPHOCYTE FLAG 0 (0-99); FRAGMENT RBC FLAG 0 (0-99); HEMATOCRIT 29.1 % (38.0-47.0); HEMOGLOBIN 9.7 g/dL (12.6-16.3); LEFT SHIFT FLG 0 (0-99); LIPEMIA HEMOLYSIS FLAG 80 (0-99); MEAN CELL HEMOGLOBIN 31.2 pg (27.9-34.1); MEAN CELL HEMOGLOBIN CONCENTR. 33.3 g/dL (32.4-36.7); MEAN CELL VOLUME 93.6 fL (81.5-99.8); PLATELET CLUMPS FLAG 0 (0-99); PLATELET COUNT 210 10^3/uL (150-400); RED BLOOD CELL COUNT 3.11 10^6/uL (4.18-5.33); RED CELL DISTRIBUTION WIDTH 13.9 % (11.5-15.2)
[2017-01-07] MEDS: oxyCODONE IR 5 MG TAB PO PRN (09:24)
[2017-01-07] MEDS: SENNOSIDES/DOCUSATE SODIUM TAB PO SCH ×2 (09:25→21:36)
[2017-01-07] MEDS: RIVAROXABAN 10 MG TAB PO SCH (09:25)
[2017-01-07] MEDS: LABETALOL HCL 100 MG TAB PO SCH ×2 (09:29→21:36)
[2017-01-07] MEDS ORDERED: lamoTRIgine 100 MG TAB PO SCH (21:00)
--- NOTE | 2017-01-07 21:04 | HOSPPROG ---
Hospitalist Progress Note Assessment/Plan: * hip fracture * status post repair * bipolar with manic episode * better today with Lamictal * psych input appreciated * will increase to 50 mg daily. was on 200 then stopped. * hypertension * continue medications * DVT prophylaxis * placed on Xarelto by Orthopedic surgery * disposition * could probably going to rehab tomorrow but would like psychiatric state to be stable. trying to get into rehab in [facility] Subjective: no new complaints Objective: Vital Signs Temp Pulse Resp BP Pulse Ox 37.8 C 85 15 163/72 H 96 01/07/17 16:00 01/07/17 16:00 01/07/17 16:00 01/07/17 16:00 01/07/17 16:00 Laboratory Results 01/07/17 05:09 01/06/17 01/07/17 01/08/17 05:59 05:59 05:59 Intake Total 950 800 650 Output Total 1850 750 Balance 950 -1050 -100 PT 13.2 SEC (12.0-15.0) 01/04/17 03:55 INR 1.01 (0.83-1.16) 01/04/17 03:55 - Physical Exam Constitutional: no apparent distress, appears nourished, not in pain Eyes: anicteric sclera, EOMI Ears, Nose, Mouth, Throat: moist mucous membranes, hearing normal Cardiovascular: regular rate and rhythym, no murmur, rub, or gallop Respiratory: no respiratory distress Skin: normal color Neurologic: AAOx3 Psychiatric: other (talkative but not as manic as admit) ICD10 Worksheet Patient Problems: Problems Problem Status Onset Benign essential hypertension Acute Recurrent falls Acute Right femoral shaft fracture Acute Hyponatremia Active Vasovagal syncope Active
[2017-01-07] MEDS: traZODone 100 MG TAB PO SCH (21:36)
[2017-01-07] MEDS: lamoTRIgine 100 MG TAB PO SCH (21:57)
[2017-01-08] MEDS: traMADol 50 MG TAB PO SCH ×2 (05:06→12:54)
[2017-01-08] MEDS: ACETAMINOPHEN 325 MG TAB PO SCH ×2 (05:06→12:55)
[2017-01-08 05:29] LABS: HEMATOCRIT 28.9 % (38.0-47.0); HEMOGLOBIN 9.6 g/dL (12.6-16.3)
[2017-01-08 07:45] VITALS: BP 158/82; PULSE 83; RESP 15; TEMP 98.7; O2SAT 98
[2017-01-08] MEDS: LABETALOL HCL 100 MG TAB PO SCH (08:47)
[2017-01-08] MEDS: RIVAROXABAN 10 MG TAB PO SCH (08:48)
[2017-01-08] MEDS: SENNOSIDES/DOCUSATE SODIUM TAB PO SCH (08:50)
--- NOTE | 2017-01-08 10:51 | PDIAF ---
- Diagnosis Diagnosis: Femur fracture, repair Code Status: Full Code - Medication Management Discharge Medications: Medications to Continue on Transfer Venlafaxine Xr [Effexor Xr] 150 mg PO DAILY 12/23/14 [Last Taken 01/03/17] traZODone [traZODONE 100MG (*)] 300 mg PO HS 12/23/14 [Last Taken 01/02/17] Labetalol HCl [Trandate 100 mg (*)] 100 mg PO BID #0 tab 12/29/14 [Last Taken ] amLODIPine BESYLATE [Norvasc 10 mg (*)] 5 mg PO DAILY #0 tab 12/29/14 [Last Taken 01/03/17] buPROPion XL [Wellbutrin 150mg XL] 300 mg PO DAILY #0 tab 12/29/14 [Last Taken 01/03/17] Acetaminophen [Tylenol 325mg (*)] 650 mg PO Q6HRS tab 01/08/17 [Last Taken Unknown] Gabapentin [Neurontin 100 MG (*)] 100 mg PO TID #0 cap 01/08/17 [Last Taken Unknown] Polyethylene Glycol 3350 [Miralax 17 gm (*)] 17 gm PO DAILY PRN #0 pkt 01/08/17 [Last Taken Unknown] Rivaroxaban [Xarelto 10mg (*)] 10 mg PO DAILY tab 01/08/17 [Last Taken Unknown] Sennosides/Docusate Sodium [Senokot-S] 1 - 2 tab PO BID tab 01/08/17 [Last Taken Unknown] lamoTRIgine [LamICTAL 100 MG (*)] 50 mg PO HS tab 01/08/17 [Last Taken Unknown] oxyCODONE IR [Oxycodone Ir (*)] 5 - 10 mg PO Q4 PRN #0 tab 01/08/17 [Last Taken Unknown] Detention Antibiotics: NA Discharge Medications: Refer to the Discharge Home Medication list for PRN reason. PICC Care - Routine: N/A - Orders Services needed: Registered Nurse, Physical Therapy Diet Recommendation: no restrictions on diet Jung: Not applicable Wound Care Instructions: keep area clean and dry Sutures/[place] Site: at appointment with Dr. Tucker Activity/Weight Bearing Restrictions: non-weight bearing R lower extremity for 6 weeks Additional: - please arrange outpatient primary care and psychiatry care in [place]. - please increase lamictal to 75mg qHS in 2 weeks, then to 100mg qHS 2 weeks after that dose adjustment - Follow Up Care Current Providers and Referrals: NONE *PRIMARY CARE P,. [Primary Care Provider] - As per Instructions Kalani Tucker MD [Medical Doctor] - follow up in 2 weeks
[2017-01-08] MEDS: oxyCODONE IR 5 MG TAB PO PRN ×2 (12:56→15:25)
--- NOTE | 2017-01-08 12:56 | SOAPPROG ---
SOAP Progress Note Assessment/Plan: Assessment: Plan: Subjective: states she's comfortable and doing well dressing C&D with foot NVI transferring to [facility] Objective: Vital Signs Temp Pulse Resp BP Pulse Ox 37.1 C 83 15 158/82 H 98 01/08/17 07:44 01/08/17 07:44 01/08/17 07:44 01/08/17 07:44 01/08/17 07:44 Laboratory Results 01/08/17 04:40 01/07/17 01/08/17 01/09/17 05:59 05:59 05:59 Intake Total 800 850 700 Output Total 1850 1350 Balance -1050 -500 700 PT 13.2 SEC (12.0-15.0) 01/04/17 03:55 INR 1.01 (0.83-1.16) 01/04/17 03:55 ICD10 Worksheet Patient Problems: Problems Problem Status Onset Benign essential hypertension Acute Recurrent falls Acute Right femoral shaft fracture Acute Hyponatremia Active Vasovagal syncope Active
--- NOTE | 2017-01-08 19:07 | PDDCSUM ---
Discharge Summary Discharge Summary: DISCHARGE SUMMARY FOLLOW-UP ITEMS: None DATE OF ADMISSION: DATE OF DISCHARGE: 01/08/2017 DISCHARGE DIAGNOSES: 1. Acute femur fracture, right 2. Bipolar disease type 1 with acute manic episode 3. Chronic hypertension 4. Acute blood loss anemia CONSULTATIONS: Orthopedics by PROCEDURES / IMAGING: Femur fracture surgical repair by Dr. Tucker CHIEF COMPLAINT: Right leg pain SUBJECTIVE: Patient is feeling well at time of discharge PHYSICAL EXAM ON DISCHARGE: Systolic blood pressure is 100, heart rate 80, afebrile overnight, skin is soft without any erythema or induration, no ecchymoses, abdomen is soft nontender nondistended, mood is good without tash LABS ON DISCHARGE: Hemoglobin 9.6 HOSPITAL COURSE BY PROBLEM: 1. Acute femur fracture. Patient sustained an acute fracture to her right femur status post mechanical fall. She required surgical repair by Dr. Tucker on 01/04/2017. She will be nonweightbearing for the next 6 weeks and will follow up with Dr. Tucker in the outpatient setting. She will require long-term facility for placement. She has pain medications as needed as well as a bowel regimen. 2. Bipolar disease type 1 with acute manic episode. Patient's hospitalization was extended secondary to mood Destabilization in the setting of recent discontinuation of 200 mg of daily lamictal. Patient was seen in consultation by Psychiatry, they recommended initiating her Lamictal progressively from 25 mg at bedtime to 50 mg at bedtime. They recommended increasing it in 25 mg increments every 2 weeks until she achieves a steady state. Her mood is stable at time of discharge. Her other home medications have been re-initiated. 3. Chronic hypertension. Patient has been continued on her home medications. 4. Acute blood loss anemia. Anticipated postop, hemoglobin level from 12.6->9.6 , stabilized without requiring blood transfusion did require postoperative monitoring. DISCHARGE MEDICATIONS: Please see official discharge medication reconciliation sheet in chart , as needed oxycodone, scheduled Senokot S, as-needed MiraLax DISCHARGE INSTRUCTIONS: Patient should follow up with Dr. Tucker in 2 weeks, remain nonweightbearing in the right lower extremity for 6 weeks. TIME SPENT: Greater than 30 minutes were spent on direct patient care, as well as discharge planning and preparation.
== END 2017-01-08 15:30 | DRG 481 ==
LOC: EDUNIT# → OBSVTOIN 05:42 → F2N 08:16 → F3N 16:01
PROVIDERS: ADMIT Internal Medicine; ATTEND Internal Medicine
PROC: 30233N1 Transfusion of Nonautologous Red Blood Cells into Peripheral Vein, Percutaneous Approach (ICD-10-PCS; 2017-01-04)
PROC: 3E0T3BZ Introduction of Anesthetic Agent into Peripheral Nerves and Plexi, Percutaneous Approach (ICD-10-PCS; 2017-01-04)
PROC: 0QS704Z Reposition Left Upper Femur with Internal Fixation Device, Open Approach (ICD-10-PCS; principal; 2017-01-04 13:00)
DX: M97.02XA Periprosthetic fracture around internal prosthetic left hip joint, initial encounter (principal); D62 Acute posthemorrhagic anemia; F31.9 Bipolar disorder, unspecified; I10 Essential (primary) hypertension; G60.0 Hereditary motor and sensory neuropathy; W01.10XA Fall on same level from slipping, tripping and stumbling with subsequent striking against unspecified object, initial encounter; Y92.019 Unspecified place in single-family (private) house as the place of occurrence of the external cause; Z96.652 Presence of left artificial knee joint; Z72.0 Tobacco use; Z88.0 Allergy status to penicillin; Z23 Encounter for immunization
CPT/HCPCS: 96374; 97162-GP; 97166-GO; 97530-GO; 97530-GP; C1713; G0008; G8978-GP-CK; G8979-GP-CJ; G8987-GO-CL; G8988-GO-CJ; J2250; J2370; J2405; J2704; J3010; J3490; P9016; P9041